=== PATIENT | male | born 1995 | race Caucasian/White ===

== ENCOUNTER 2024-07-30 17:10 | Emergency (ER) | payer SELFPAY ==
[2024-07-30 17:13] VITALS: BP 129/84; PULSE 87; RESP 18; TEMP 36.66960; O2SAT 97
[2024-07-30] MEDS: FLUORESCEIN SODIUM 1MG/STRIP BOTHEYE ONE (17:30)
[2024-07-30] MEDS: TETRACAINE 0.5% OPHTH DROPS 4ML BOTHEYE ONE (17:30)
[2024-07-30] MEDS ORDERED: PRED5DRO22 BOTHEYE (19:25)
[2024-07-30] MEDS ORDERED: MAXOS EACHEYE (19:25)
[2024-07-30] MEDS ORDERED: CIPR2.5D20 EACHEYE (19:25)
== END 2024-07-30 20:06 | disposition home or self-care (01) ==
LOC: ER 17:10
DX: S05.00XA Injury of conjunctiva and corneal abrasion without foreign body, unspecified eye, initial encounter (principal); H16.8 Other keratitis; Z88.9 Allergy status to unspecified drugs, medicaments and biological substances; X58.XXXA Exposure to other specified factors, initial encounter; Y93.89 Activity, other specified; Y92.89 Other specified places as the place of occurrence of the external cause; Y99.9 Unspecified external cause status
CPT/HCPCS: 99283